=== PATIENT | female | born 1990 | race Two or more races ===

== ENCOUNTER 2022-06-08 04:10 | Emergency (ER) | payer SELFPAY ==
[~2022-06-08] VITALS: Ht 160 cm; Wt 73.0 kg
[2022-06-08 04:16] VITALS: BP 110/70
== END 2022-06-08 05:01 | disposition left against medical advice (07) ==
LOC: ER 04:10
DX: Z53.21 Procedure and treatment not carried out due to patient leaving prior to being seen by health care provider (principal)
CPT/HCPCS: 93005; 99283